=== PATIENT | female | born 1960 ===

== ENCOUNTER 2017-09-08 09:23 | Observation (INO) | payer MEDICAID ==
[2017-09-08 09:24] VITALS: BMI 25.7
[2017-09-08] MEDS ORDERED: Sodium Chloride 0.9% 1,000 ML IV STA (09:56)
[2017-09-08] MEDS ORDERED: Iohexol 240 (50 ml) PO ONE (09:56)
--- NOTE | 2017-09-08 10:27 | ED PDOC ---
HPI: Abdomen Time Seen by Provider: 09/08/17 09:41 Chief Complaint (Nursing): Abdominal Pain Chief Complaint (Provider): Abdominal pain History Per: Patient History/Exam Limitations: no limitations Onset/Duration Of Symptoms: Days (x1) Current Symptoms Are (Timing): Still Present Location Of Pain/Discomfort: RLQ Quality Of Discomfort: Sharp Associated Symptoms: Loss Of Appetite. denies: Vomiting, Diarrhea Last Bowel Movement: Today (this morning) Additional Complaint(s): Carmela Padilla is a 57 year old female, with a past medical history of gastritis, who presents to the emergency department complaining of a RLQ abdominal pain associated with a lack of appetite onset since last night. Patient describes the pain as constant and sharp. Patient's last bowel movement was this morning. She denies any vomiting, diarrhea, headache, sore throat, or body aches. PMD: Jeanette Camargo Past Medical History Reviewed: Historical Data, Nursing Documentation, Vital Signs Vital Signs: Last Vital Signs Temp 98 F 09/08/17 17:04 Pulse 78 09/08/17 17:04 Resp 18 09/08/17 17:04 BP 108/58 L 09/08/17 17:04 Pulse Ox 99 09/08/17 17:04 - Medical History PMH: Gastritis - Surgical History Other surgeries: breast augmentation - Family History Family History: States: Unknown Family Hx - Social History Current smoker - smoking cessation education provided: No Alcohol: Social Drugs: Denies - Home Medications Home Medications: Ambulatory Orders Medication Instructions Recorded Ascorbic Acid [Vitamin C 500 mg 1 tab PO DAILY 09/08/17 Tab] Biotin [Biotin] 1 cap PO DAILY 09/08/17 Calcium Carbonate [Caltrate] 1 tab PO DAILY 09/08/17 Estrogen,Con/M-Progest Acet 1 tab PO DAILY 09/08/17 [Prempro 0.3 mg-1.5 mg Tablet] Magnesium Oxide [Magox 400] 1 tab PO DAILY 09/08/17 Omeprazole [Omeprazole] 20 mg PO DAILY 09/08/17 cloNIDine [Catapres] 0.1 mg PO DAILY 09/08/17 - Allergies Allergies/Adverse Reactions: Allergies Allergy/AdvReac Type Severity Reaction Status Date / Time nitrofurantoin AdvReac VOMITING Verified 11/01/16 20:33 Review of Systems ROS Statement: Except As Marked, All Systems Reviewed And Found Negative ENT: Negative for: Throat Pain Cardiovascular: Negative for: Chest Pain Respiratory: Negative for: Cough Gastrointestinal: Positive for: Abdominal Pain (sharp, RLQ) Neurological: Negative for: Weakness, Dizziness Psych: Negative for: Depression Physical Exam - Reviewed Nursing Documentation Reviewed: Yes Vital Signs Reviewed: Yes - Physical Exam Appears: Positive for: Non-toxic Head Exam: Positive for: ATRAUMATIC, NORMAL INSPECTION, NORMOCEPHALIC Skin: Positive for: Normal Color, Warm, Dry Eye Exam: Positive for: Normal appearance Neck: Positive for: Painless ROM Cardiovascular/Chest: Positive for: Regular Rate, Rhythm. Negative for: Murmur Respiratory: Positive for: Normal Breath Sounds (clear b/l). Negative for: Respiratory Distress Gastrointestinal/Abdominal: Positive for: Tenderness (RLQ) Back: Positive for: Normal Inspection. Negative for: L CVA Tenderness, R CVA Tenderness, Vertebral Tenderness Extremity: Positive for: Normal ROM. Negative for: Deformity, Swelling Neurologic/Psych: Positive for: Alert, Oriented - Laboratory Results Result Diagrams: 09/08/17 10:24 09/08/17 10:24 - ECG O2 Sat by Pulse Oximetry: 97 (RA) Pulse Ox Interpretation: Normal Medical Decision Making Medical Decision Making: Initial Impression: Acute abdominal pain possible appendicitis Initial Plan: --Abd Pelvis PO & IV contrast [CT] --Comp Metabolic Panel --Lipase --Urine dipstick --Urine --CBC w/ differential --Tylenol 325 mg tab 650 mg PO --Omnipaque 240 50 ml PO --Toradol 30 mg IV --Sodium Chloride 1,000 ml IV 1,000 mls/hr --Urinalysis --reevaluation --Patient had a low grade fever, she was unaware. Tylenol initiated. CT: Accession No. : [id number] Patient Name / ID : BRYAN LEUNG / [id number] Exam Date : 09/08/2017 13:21:07 ( Approved ) Study Comment : Sex / Age : F / 57Y Creator : Michael Tian MD Dictator : Michael Tian MD Special Needs Nanny : Workgroup Leader : Michael Tian MD Approver2 : Report Date : 09/08/2017 13:58:37 My Comment : PROCEDURE: CT Abdomen and Pelvis with contrast HISTORY: RLQ abdominal pain, fever COMPARISON: CT scan of the abdomen and pelvis dated 11/02/2016. TECHNIQUE: Contrast dose: 95 mL Omnipaque 300 Radiation dose: Total exam DLP = 571.3 mGy-cm. This CT exam was performed using one or more of the following dose reduction techniques: Automated exposure control, adjustment of the mA and/or kV according to patient size, and/or use of iterative reconstruction technique. FINDINGS: LOWER THORAX: Partially imaged right breast prosthesis. Unremarkable. LIVER: Hepatic steatosis. No gross lesion or ductal dilatation. GALLBLADDER AND BILE DUCTS: Unremarkable. PANCREAS: Unremarkable. No gross lesion or ductal dilatation. SPLEEN: Unremarkable. ADRENALS: Unremarkable. No mass. KIDNEYS AND URETERS: Sub centimeter left renal cysts redemonstrated. No hydronephrosis. No solid mass. VASCULATURE: Circumaortic left renal vein. No aortic aneurysm. BOWEL: Nonspecific antral and proximal duodenal wall thickening versus underdistention. No obstruction. No gross mural thickening. APPENDIX: At the upper limits of normal in size without intraluminal air or fluid/ contrast identified. Questionable right lower quadrant hazy change PERITONEUM: Small fat containing umbilical hernia. No free fluid. No free air. LYMPH NODES: Unremarkable. No enlarged lymph nodes. BLADDER: Unremarkable. REPRODUCTIVE: Unremarkable. BONES: No acute fracture. OTHER FINDINGS: None. IMPRESSION: Findings equivocal for acute appendicitis. Clinical correlation is recommended. britney Camargo PMD at 230p who requested Dr Silvino Pereira for surgery consult Shahram wright residential child care counselor in ED approx 245p Admitted Obs to Dr Camargo on his request Dr Pereira in ED 515pm Scribe Attestation: Documented by Mustapha Gonsalez, acting as a scribe for Darrell Tian MD Provider Scribe Attestation: All medical record entries made by the Scribe were at my direction and personally dictated by me. I have reviewed the chart and agree that the record accurately reflects my personal performance of the history, physical exam, medical decision making, and the department course for this patient. I have also personally directed, reviewed, and agree with the discharge instructions and disposition. Disposition - Clinical Impression Clinical Impression: Appendicitis - Patient ED Disposition Is Patient to be Admitted: Yes Counseled Patient/Family Regarding: Studies Performed, Diagnosis - Disposition Disposition Time: 14:01 Condition: STABLE - Pt Status Changed To: Hospital Disposition Of: Observation
[2017-09-08 10:37] LABS: BASO # 0.1 K/uL (0.0-0.2); BASO % 1.2 % (0.0-2.0); EOS # 0.1 K/uL (0.0-0.7); EOS % 1.8 % (0.0-4.0); HEMOGLOBIN 12.6 g/dL (12.0-16.0); LYMPH # 0.6 K/uL (1.0-4.3); LYMPH % 12.1 % (20.0-40.0); MEAN CELL VOLUME 91.9 fl (81.0-99.0); MEAN CORPUSCULAR HGB CONC 32.7 g/dL (33.0-37.0); MEAN PLATELET VOLUME 8.8 fl (7.2-11.7); MONO # 0.5 K/uL (0.0-0.8); MONO % 9.7 % (0.0-10.0); NEUT # 3.8 K/uL (1.8-7.0); NEUT % 75.2 % (50.0-75.0); RBC 4.19 Mil/uL (3.80-5.20)
[2017-09-08] MEDS ORDERED: Iohexol 240 (50 ml) ONE (10:45)
[2017-09-08 10:47] LABS: ALB/GLOB RATIO 1.3 (1.0-2.1); ALBUMIN 4.2 g/dL (3.5-5.0); ALT/SGPT 45 U/L (9-52); AST/SGOT 25 U/L (14-36); BLOOD UREA NITROGEN 13 mg/dl (7-17); CALCIUM 9.1 mg/dL (8.4-10.2); GFR AFRICAN-AMERICAN > 60; GFR NON-AFRICAN AMERICAN > 60; LIPASE 93 U/L (23-300)
[2017-09-08 10:51] LABS: URINE BACTERIA FEW (<OCC); URINE BILIRUBIN NEGATIVE (NEGATIVE); URINE BLOOD MODERATE (NEGATIVE); URINE CLARITY SLIGHTY-CLOUDY (Clear); URINE COLOR YELLOW (YELLOW); URINE GLUCOSE (UA) NEG (Normal); URINE LEUKOCYTE ESTERASE TRACE Leu/uL (Negative); URINE NITRATE POSITIVE (NEGATIVE); URINE PROTEIN NEGATIVE (NEGATIVE); URINE UROBILINOGEN 0.2-1.0 mg/dL (0.2-1.0)
[2017-09-08 11:25] LABS: SQUAMOUS EPITHIAL 3 /hpf (0-5)
[2017-09-08] MEDS ORDERED: Sodium Chloride 0.9% 50 ML IV ONE (13:18)
[2017-09-08] MEDS ORDERED: Iohexol 300 100 ML IJ ONE (13:18)
--- NOTE | 2017-09-08 14:00 | CT ---
PROCEDURE: CT Abdomen and Pelvis with contrast HISTORY: RLQ abdominal pain, fever COMPARISON: CT scan of the abdomen and pelvis dated 11/02/2016. TECHNIQUE: Contrast dose: 95 mL Omnipaque 300 Radiation dose: Total exam DLP = 571.3 mGy-cm. This CT exam was performed using one or more of the following dose reduction techniques: Automated exposure control, adjustment of the mA and/or kV according to patient size, and/or use of iterative reconstruction technique. FINDINGS: LOWER THORAX: Partially imaged right breast prosthesis. Unremarkable. LIVER: Hepatic steatosis. No gross lesion or ductal dilatation. GALLBLADDER AND BILE DUCTS: Unremarkable. PANCREAS: Unremarkable. No gross lesion or ductal dilatation. SPLEEN: Unremarkable. ADRENALS: Unremarkable. No mass. KIDNEYS AND URETERS: Sub centimeter left renal cysts redemonstrated. No hydronephrosis. No solid mass. VASCULATURE: Circumaortic left renal vein. No aortic aneurysm. BOWEL: Nonspecific antral and proximal duodenal wall thickening versus underdistention. No obstruction. No gross mural thickening. APPENDIX: At the upper limits of normal in size without intraluminal air or fluid/contrast identified. Questionable right lower quadrant hazy change PERITONEUM: Small fat containing umbilical hernia. No free fluid. No free air. LYMPH NODES: Unremarkable. No enlarged lymph nodes. BLADDER: Unremarkable. REPRODUCTIVE: Unremarkable. BONES: No acute fracture. OTHER FINDINGS: None. IMPRESSION: Findings equivocal for acute appendicitis. Clinical correlation is recommended.
[2017-09-08] MEDS ORDERED: Piperacillin/Tazobact 3.375 GM in Sodium Chloride 0.9% 100 ML IVPB ONE (15:00)
--- NOTE | 2017-09-08 15:19 | CP.PCM.CON ---
History of Present Illness - History of Present Illness History of Present Illness: General surgery consult note for Dr. Pereira-Yi Menendez, PGY-1 Pt S & E at bedside. 57F w/PMH sig for HSV, gastritis consulted for abdominal pain x 1 day. Pt states sudden onset of abdominal pain s/p eating chicken soup. Pt ate only bananas prior to chicken soup due to epigastric abdominal pain from gastritis. Pt w/recent long travel resulting in symptoms of vaginal yeast infection- took Diflucan. Also with recent symptoms of URI (chest congestion, cough)- has been taking DayQuil and NyQuil; also recent outbreak of HSV she took Valtrex for. Pain is right sided, non radiating, constant since onset, "feels like a small fish". Admits to cough, chest congestion, vaginal discharge, small vaginal ulcers, fever, chills. Denies ever having before, nausea, vomiting, diarrhea, constipation, dysuria, hematuria, changes in urinary habits, SOB, CP, other complaints. PMH: Gastritis, HSV on Valtrex PRN PSH: Breast augmentation All: Nitrofurantoin SH: Rare ETOH use, denies tobacco or illicit drug use; recent long air travel Review of Systems - Review of Systems All systems: reviewed and no additional remarkable complaints except - Constitutional Constitutional: Chills, Fever (subjective) - EENT Eyes: absent: Change in Vision Ears: absent: Dizziness Nose/Mouth/Throat: Nasal Congestion - Cardiovascular Cardiovascular: absent: Chest Pain - Respiratory Respiratory: Cough, Chest Congestion - Gastrointestinal Gastrointestinal: Abdominal Pain, Bloating. absent: Change in Bowel Habits, Change in Stool Character, Constipation, Diarrhea, Hematemesis, Hematochezia, Nausea, Vomiting - Genitourinary Genitourinary: absent: Change in Urinary Stream, Dysuria, Hematuria - Reproductive: Female Reproductive:Female: Genital Lesions, Vaginal Discharge - Musculoskeletal Musculoskeletal: absent: Muscle Weakness - Integumentary Integumentary: absent: Rash - Neurological Neurological: absent: Weakness - Psychiatric Psychiatric: Change in Appetite (decreased) Past Patient History - Past Social History Alcohol: Social Drugs: Denies - GASTROINTESTINAL Hx Gastritis: Yes - GENITOURINARY/GYNECOLOGICAL Hx Urinary Tract Infection: Yes - PSYCHIATRIC Hx Substance Use: No - SURGICAL HISTORY Hx Surgeries: Yes Other/Comment: Hx breast augmentation - ANESTHESIA Hx Anesthesia: Yes Hx Anesthesia Reactions: No Hx Malignant Hyperthermia: No Meds Allergies/Adverse Reactions: Allergies Allergy/AdvReac Type Severity Reaction Status Date / Time nitrofurantoin AdvReac VOMITING Verified 11/01/16 20:33 - Medications Medications: Current Medications Piperacillin Sod/Tazobactam (Sod 3.375 gm/ Sodium Chloride) 100 mls @ 100 mls/ hr IVPB ONCE ONE PRN Reason: Protocol Stop: 09/08/17 15:59 Physical Exam - Constitutional Appears: Non-toxic, No Acute Distress - Head Exam Head Exam: ATRAUMATIC, NORMAL INSPECTION, NORMOCEPHALIC - Eye Exam Eye Exam: EOMI - ENT Exam ENT Exam: Mucous Membranes Moist, Normal Exam - Neck Exam Neck exam: Positive for: Full Rom, Normal Inspection - Respiratory Exam Respiratory Exam: NORMAL BREATHING PATTERN - Cardiovascular Exam Cardiovascular Exam: REGULAR RHYTHM, +S1, +S2 - GI/Abdominal Exam GI & Abdominal Exam: Normal Bowel Sounds, Soft. absent: Distended, Firm, Guarding, Mass, Rebound, Rigid, Tenderness - Extremities Exam Extremities exam: Positive for: normal inspection. Negative for: pedal edema - Neurological Exam Neurological exam: Alert, CN II-XII Intact, Oriented x3 - Psychiatric Exam Psychiatric exam: Normal Affect, Normal Mood - Skin Skin Exam: Dry, Intact, Normal Color, Warm Results - Vital Signs Recent Vital Signs: Last Vital Signs Temp 98.0 F 09/08/17 12:23 Pulse 93 H 09/08/17 09:33 Resp 22 09/08/17 09:33 BP 98/64 L 09/08/17 09:33 Pulse Ox 97 09/08/17 14:29 - Labs Result Diagrams: 09/08/17 10:24 09/08/17 10:24 Labs: Laboratory Results - last 24 hr 09/08/17 09/08/17 09/08/17 10:24 10:24 10:24 WBC 5.0 RBC 4.19 Hgb 12.6 Hct 38.5 MCV 91.9 MCH 30.0 MCHC 32.7 L RDW 13.0 Plt Count 271 MPV 8.8 Neut % (Auto) 75.2 H Lymph % (Auto) 12.1 L [place] % (Auto) 9.7 Eos % (Auto) 1.8 Baso % (Auto) 1.2 Neut # 3.8 Lymph # 0.6 L [place] # 0.5 Eos # 0.1 Baso # 0.1 Sodium 139 Potassium 4.2 Chloride 102 Carbon Dioxide 27 Anion Gap 14 BUN 13 Creatinine 0.8 Est GFR ( Amer) > 60 Est GFR (Non-Af Amer) > 60 Random Glucose 95 Calcium 9.1 Total Bilirubin 0.5 AST 25 ALT 45 Alkaline Phosphatase 82 Total Protein 7.3 Albumin 4.2 Globulin 3.1 Albumin/Globulin Ratio 1.3 Lipase 93 Urine Color Yellow Urine Clarity Slighty-cloudy Urine pH 7.0 Ur Specific [place] 1.011 Urine Protein Negative Urine Glucose (UA) Neg Urine Ketones Negative Urine Blood Moderate Urine Nitrate Positive H Urine Bilirubin Negative Urine Urobilinogen 0.2-1.0 Ur Leukocyte Esterase Trace Urine RBC (Auto) 12 H Urine Microscopic WBC 22 H Ur Squamous Epith Cells 3 Urine Bacteria Few H Assessment & Plan - Assessment and Plan (Free Text) Assessment: 57F w/PMH sig for gastritis, HSV consulted for abdominal pain x 1 Plan: CT ab equivocal for appendicitis No leukocytosis Afebrile Serial ab exams IVF Abx No surgical intervention at this time Further recommendations as per Dr. Randall VAIL attending Gemma, PGY-1 - Date & Time Date: 09/08/17 Time: 15:21
[2017-09-08] MEDS ORDERED: Pantoprazole 40 mg EC Tab PO SCH (15:45)
[2017-09-08] MEDS: Lactated Ringer's 1,000 ML IV SCH (15:56)
[2017-09-08] MEDS ORDERED: Pantoprazole 40 mg EC Tab PO ONE (16:39)
[2017-09-08] MEDS: Piperacillin/Tazobact 3.375 GM in Sodium Chloride 0.9% 100 ML IVPB SCH (22:01)
[2017-09-09 01:15] VITALS: O2SAT 98
[2017-09-09] MEDS: Lactated Ringer's 1,000 ML IV SCH ×2 (01:56→11:49)
[2017-09-09] MEDS: Piperacillin/Tazobact 3.375 GM in Sodium Chloride 0.9% 100 ML IVPB SCH ×2 (04:30→09:36)
[2017-09-09 07:06] LABS: HEMOGLOBIN 11.9 g/dL (12.0-16.0); MEAN CELL VOLUME 90.7 fl (81.0-99.0); MEAN CORPUSCULAR HEMOGLOBIN 30.5 pg (27.0-31.0); MEAN CORPUSCULAR HGB CONC 33.6 g/dL (33.0-37.0); RBC 3.9 Mil/uL (3.80-5.20); RED CELL DISTRIBUTION WIDTH 12.9 % (11.5-14.5); WHITE BLOOD COUNT 3.6 K/uL (4.8-10.8)
--- NOTE | 2017-09-09 07:14 | CP.PCM.PN ---
Subjective - Date & Time of Evaluation Date of Evaluation: 09/09/17 Time of Evaluation: 06:00 - Subjective Subjective: General surgery progress note for Dr. Pereira-iY Menendez, PGY-1 Pt S & E at bedside. Pt reports resolution of abdominal pain overnight. Per nursing- did not require pain medications at all. Pt tolerated CLD, bloating resolved. Overall , pt reports she has "returned to normal". Objective - Vital Signs/Intake and Output Vital Signs (last 24 hours): Temp Pulse Resp BP Pulse Ox 99 F 76 19 107/72 98 09/09/17 00:15 09/09/17 00:15 09/09/17 00:15 09/09/17 00:15 09/09/17 00:15 - Medications Medications: Current Medications Acetaminophen (Tylenol 325mg Tab) 650 mg PO Q6 PRN PRN Reason: Pain, moderate (4-7) Alprazolam (Xanax) 0.5 mg PO BID PRN PRN Reason: Anxiety Enoxaparin Sodium (Lovenox) 40 mg SC DAILY [facility]OSSE[facility] PRN Reason: Protocol Lactated Ringer's (Lactated Ringer's) 1,000 mls @ 100 mls/hr IV .[facility]H [facility] Last Admin: 09/09/17 01:56 Dose: 100 mls/hr Piperacillin Sod/Tazobactam (Sod 3.375 gm/ Sodium Chloride) 100 mls @ 100 mls/ hr IVPB Q6 JOSSELINE PRN Reason: Protocol Last Admin: 09/09/17 04:30 Dose: 100 mls/hr Ketorolac Tromethamine (Toradol) 10 mg PO Q6 PRN PRN Reason: Pain, severe (8-10) Pantoprazole Sodium (Protonix Ec Tab) 40 mg PO DAILY JOSSELINE - Labs Labs: 09/08/17 10:24 09/08/17 10:24 - Constitutional Appears: Non-toxic, No Acute Distress - Head Exam Head Exam: ATRAUMATIC, NORMAL INSPECTION, NORMOCEPHALIC - Eye Exam Eye Exam: EOMI, Normal appearance - ENT Exam ENT Exam: Mucous Membranes Moist, Normal Exam - Neck Exam Neck Exam: Full ROM, Normal Inspection - Respiratory Exam Respiratory Exam: NORMAL BREATHING PATTERN - Cardiovascular Exam Cardiovascular Exam: REGULAR RHYTHM, +S1, +S2 - GI/Abdominal Exam GI & Abdominal Exam: Soft. absent: Distended, Firm, Guarding, Rigid, Tenderness , Mass, Rebound - Extremities Exam Extremities Exam: Full ROM, Normal Inspection - Neurological Exam Neurological Exam: Alert, Awake, CN II-XII Intact, Oriented x3 - Psychiatric Exam Psychiatric exam: Normal Affect, Normal Mood - Skin Skin Exam: Dry, Intact, Normal Color, Warm Assessment and Plan - Assessment and Plan (Free Text) Assessment: 57F w/abdominal pain- resolved. Plan: Tolerating CLD Advance diet to regular No surgical intervention at this time Pt cleared for discharge home from surgical standpoint Ab pain resolved Thank you for this consult Please re-consult as needed GENNA attending Gemma, PGY-1
[2017-09-09 07:26] LABS: ALB/GLOB RATIO 1.1 (1.0-2.1); ALBUMIN 3.4 g/dL (3.5-5.0); ALT/SGPT 43 U/L (9-52); AST/SGOT 28 U/L (14-36); BLOOD UREA NITROGEN 9 mg/dl (7-17); CALCIUM 8.3 mg/dL (8.4-10.2); GFR AFRICAN-AMERICAN > 60; GFR NON-AFRICAN AMERICAN > 60
[2017-09-09 07:58] VITALS: BP 98/64; PULSE 79; RESP 18; TEMP 98.6
[2017-09-09] MEDS ORDERED: Enoxaparin 40 mg Syringe SC SCH (09:00)
[2017-09-09] MEDS ORDERED: Pantoprazole 40 mg EC Tab PO SCH (09:00)
[2017-09-09] MEDS ORDERED: Influenza Vaccine 18yr & older 0.5 ML/45 MCG SYR IM ONE (12:02)
[2017-09-09] MEDS ORDERED: Pneumococcal 23-Valent Vaccine IM ONE (12:02)
--- NOTE | 2017-09-09 14:37 | CP.PCM.PN ---
Subjective - Date & Time of Evaluation Date of Evaluation: 09/09/17 Time of Evaluation: 09:15 - Subjective Subjective: Patient resting comfortably; tolerating soft diet; no complaint of abdominal pain or bloating this morning Vital Signs Stable Lungs- clear to auscultation Heart- regular S1, S2, no murmur Abd.- +BS, soft, non tender Ext.- no edema 1. RLQ pain 2. Proximal duodenal wall thickening 3. Gastritis 4. Umbilical hernia 5. Hepatic steatosis Patient is stable for discharge and will follow up at my office next week; will order GI referral for colonoscopy to evaluate for inflammatory or infectious etiology Objective - Vital Signs/Intake and Output Vital Signs (last 24 hours): Temp Pulse Resp BP Pulse Ox 98.6 F 79 18 98/64 L 98 09/09/17 07:57 09/09/17 07:57 09/09/17 07:57 09/09/17 07:57 09/09/17 07:57 - Medications Medications: Current Medications Acetaminophen (Tylenol 325mg Tab) 650 mg PO Q6 PRN PRN Reason: Pain, moderate (4-7) Alprazolam (Xanax) 0.5 mg PO BID PRN PRN Reason: Anxiety Enoxaparin Sodium (Lovenox) 40 mg SC DAILY [facility] PRN Reason: Protocol Last Admin: 09/09/17 08:54 Dose: Not Given Lactated Ringer's (Lactated Ringer's) 1,000 mls @ 100 mls/hr IV .Q10H [facility] Last Admin: 09/09/17 11:49 Dose: Not Given Piperacillin Sod/Tazobactam (Sod 3.375 gm/ Sodium Chloride) 100 mls @ 100 mls/ hr IVPB Q6 JOSSELINE PRN Reason: Protocol Last Admin: 09/09/17 09:36 Dose: 100 mls/hr Ketorolac Tromethamine (Toradol) 10 mg PO Q6 PRN PRN Reason: Pain, severe (8-10) Pantoprazole Sodium (Protonix Ec Tab) 40 mg PO DAILY [facility] Last Admin: 09/09/17 08:54 Dose: 40 mg - Labs Labs: 09/09/17 05:30 09/09/17 05:30
== END 2017-09-09 13:30 | disposition home or self-care (01) ==
LOC: H.ER 09:23 → H.ERHOLD 14:30 → H.MEDSURG1 18:22
PROVIDERS: ADMIT Family Medicine Adult Medicine; ATTEND Family Medicine Adult Medicine
DX: R10.31 Right lower quadrant pain (principal); R10.13 Epigastric pain; K29.70 Gastritis, unspecified, without bleeding; K42.9 Umbilical hernia without obstruction or gangrene; K76.0 Fatty (change of) liver, not elsewhere classified; Z23 Encounter for immunization; Z87.440 Personal history of urinary (tract) infections; Z86.19 Personal history of other infectious and parasitic diseases
CPT/HCPCS: 36415; 74177; 80053; 81003; 81025; 83690; 83735; 84100; 85025; 85027; 87086; 90471; 90732; 96360; 99283; G0378; J1885; J2543; J7040; J7120; Q2035; Q9966; Q9967